=== PATIENT | female | born 1975 | race Caucasian/White ===

== ENCOUNTER → 2021-08-28 | Outpatient (CLI) | payer BC | END | disposition home or self-care (01) | LOC: LAB SHORT 07:36 → PLD 07:36 → LAB 07:36 | DX: N92.0 Excessive and frequent menstruation with regular cycle (principal) | CPT/HCPCS: 88305 ==

== ENCOUNTER → 2021-08-28 | Outpatient (CLI) | payer BC ==
[2021-08-29 16:11] LABS: HPV 16 Negative (Negative); HPV 18 Negative (Negative); HPV OTHER HR TYPES Negative (Negative)
== END | disposition home or self-care (01) ==
LOC: LAB SHORT 16:54
PROVIDERS: Obstetrics & Gynecology
DX: Z01.419 Encounter for gynecological examination (general) (routine) without abnormal findings (principal)
CPT/HCPCS: 87624; G0123

== ENCOUNTER → 2021-10-11 | Outpatient (CLI) | payer BC ==
[~2021-10-11] MED LIST: ACET500 PO; BUPROPION HCL100 MG PO; IBU800 M1 PO; LEVOCETIRIZINE D5 MG PO; LEVOCETIRIZINE PO; MELO7.5 PO; MONT10T PO; POTASSIUM99 M3 PO
[2021-10-29 07:31] LABS: Result See F348252578
== END | disposition home or self-care (01) ==
LOC: LAB 11:20 → LAB SHORT 11:20
PROVIDERS: Obstetrics & Gynecology
DX: Z09 Encounter for follow-up examination after completed treatment for conditions other than malignant neoplasm (principal); Z78.9 Other specified health status
CPT/HCPCS: 36415; 86850; 86860; 86870; 86880; 86900; 86901; 86906; 86970; 86978

== ENCOUNTER 2021-10-14 05:47 | Day surgery (SDC) | payer BC ==
[~2021-10-14] VITALS: Ht 172.7 cm; Wt 108.6 kg
[~2021-10-14 05:47] MED LIST changes: -ACET500 PO; -IBU800 M1 PO; -LEVOCETIRIZINE D5 MG PO; -POTASSIUM99 M3 PO
[2021-10-14] MEDS ORDERED: POTASSIUM99 M3 PO (06:42)
[2021-10-14] MEDS ORDERED: LEVOCETIRIZINE D5 MG PO (06:42)
--- NOTE | 2021-10-14 07:23 | NUR ---
History, Chart, Medications and Allergies reviewed before start of procedure. Patient confirms NPO status and agrees with scheduled surgery.
--- NOTE | 2021-10-14 12:22 | NUR ---
ASSISTED PT UP TO BATHROOM, PT FEELS SHE NEEDS TO VOID
--- NOTE | 2021-10-14 12:35 | NUR ---
PT BACK TO BED MARIJA PADS CHANGED, S/L IV TOLERATING FEW ICE CHIPS
--- NOTE | 2021-10-14 17:01 | NUR ---
DINNER TRAY PASSED PT SLEEPING SOUNDLY
--- NOTE | 2021-10-14 17:52 | NUR ---
P/C FROM DR DAIGLE FOR UPDATE ON HER PT, PT SLEEPING SOUNDLY
--- NOTE | 2021-10-14 18:47 | NUR ---
PATIENT UP AMBULATING IN HALLS, STATES PAIN CURRENTLY 3
[2021-10-15] MEDS ORDERED: ACET500 PO (10:11)
[2021-10-15] MEDS ORDERED: IBU800 M1 PO (10:12)
--- NOTE | 2021-10-15 10:27 | NUR ---
dc teaching done, iv sl dc'd, pt is ready to dchome, messaged , will be here in minutes to take pt home
[2021-10-16 07:10] LABS: Performing Lab BLOODWORKS; Test Name ABID
== END 2021-10-15 11:15 | disposition home or self-care (01) ==
LOC: ORSCMMR 05:47 → ORD 07:30 → BC 11:45 → SURS 10-15 10:16 → BC 10-15 10:20 → ORSCMMR 10-15 11:15
PROVIDERS: Obstetrics & Gynecology
PROC: 0UT7FZZ Resection of Bilateral Fallopian Tubes, Via Natural or Artificial Opening With Percutaneous Endoscopic Assistance (ICD-10-PCS; principal; 2021-10-14 07:30)
PROC: 0UT9FZZ Resection of Uterus, Via Natural or Artificial Opening With Percutaneous Endoscopic Assistance (ICD-10-PCS; principal; 2021-10-14 07:30)
DX: N92.0 Excessive and frequent menstruation with regular cycle (principal); D25.9 Leiomyoma of uterus, unspecified; E66.9 Obesity, unspecified; Z68.36 Body mass index [BMI] 36.0-36.9, adult
CPT/HCPCS: 36415; 86850; 86860; 86870; 86880; 86900; 86901; 86906; 86970; 86978; 88307; A9270; J0171; J0690; J1100; J1885; J2250; J2370; J2405; J2704; J2765; J3010; J7120